=== PATIENT | male | born 1980 | race Caucasian/White ===

== ENCOUNTER 2019-12-28 21:26 | Emergency (ER) | payer OTHER ==
[~2019-12-28] VITALS: Ht 182.9 cm; Wt 90.7 kg
[2019-12-28] MEDS ORDERED: KEFLEX500 M1 PO (22:08)
[2019-12-28] MEDS ORDERED: PREDNISONE 20 M20 M1 PO (22:08)
[2019-12-28] MEDS ORDERED: BACTRIM DS TAB1 EACH PO (22:08)
[2019-12-28 22:30] VITALS: BP 160/98
== END 2019-12-28 22:31 | disposition home or self-care (01) ==
LOC: M.ERS 21:26
DX: L01.00 Impetigo, unspecified (principal); F17.210 Nicotine dependence, cigarettes, uncomplicated